=== PATIENT | male | born 1955 | race Caucasian/White ===

== ENCOUNTER → 2016-10-18 | Outpatient (CLI) | payer OTHER | LOC: RAD 08:13 | PROVIDERS: ATTEND Clinical Nurse Specialist Adult Health | DX: M54.5 Low back pain (principal) | CPT/HCPCS: 72148 ==

== ENCOUNTER → 2016-12-03 | Outpatient (CLI) | payer OTHER ==
--- NOTE | 2016-12-03 11:03 | RADIOLOGY REPORT (SQ) ---
EXAM DESCRIPTION: MRI LT LOWER JOINT WITHOUT COMPLETED DATE/TIME: 12/03/2016 10:03 am REASON FOR STUDY: PAIN IN LEFT KNEE M25.562 PAIN IN LEFT KNEE COMPARISON: None. TECHNIQUE: Leftknee images acquired and stored on PACS. Multiplanar images include fat sensitive se quences as T1, water sensitive sequences as FST2 or STIR, cartilage sensitive sequences as FSPD, and gradient echo sequences. LIMITATIONS: None. FINDINGS: JOINT AND BURSAE: Small suprapatellar knee joint effusion BONE CORTEX AND MARROW: No alteration of signal to suggest marrow replacement. No worrisome bone lesi ons. No occult fracture. ACL: Torn, best shown on sagittal image 10 through 14. PCL: Intact. MCL: Intact. No periligamentous edema or fluid. LCL: Intact. No periligamentous edema or fluid. MEDIAL MENISCUS: Diffuse complex tear mid body and posterior horn medial meniscus. No parameniscal c yst. LATERAL MENISCUS: Diffuse complex tear, midbody and posterior horn lateral meniscus, no parameniscal cyst. MEDIAL COMPARTMENT: Mild chondromalacia. No bone bruises or reactive marrow edema. No osteophytes. LATERAL COMPARTMENT: Moderate to high-grade chondromalacia. No bone bruises or reactive marrow edema. No osteophytes. PATELLA: No chondromalacia. No subchondral cysts. Medial and lateral retinacula intact. EXTENSOR MECHANISM: Intact. Quadriceps and patella tendons normal. SOFT TISSUES: Adjacent muscles and subcutaneous tissues normal. Normal flow void in popliteal artery and vein. OTHER: No other significant finding. 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 TECHNICAL DOCUMENTATION: JOB ID: [id number] [employer]- All Rights Reserved
== END ==
LOC: RAD 08:01
PROVIDERS: ATTEND Clinical Nurse Specialist Adult Health
DX: M25.562 Pain in left knee (principal); M22.42 Chondromalacia patellae, left knee

== ENCOUNTER 2017-03-11 12:35 | Emergency (ER) | payer OTHER ==
[2017-03-11] MEDS ORDERED: HYDROCODONE/ACETAMINOPHEN 5-325 MG TABLET PO ONE (13:35)
--- NOTE | 2017-03-11 13:37 | ER Document Report ---
ED General - General Chief Complaint: Fall Stated Complaint: FALL/BACK PAIN Time Seen by Provider: 03/11/17 13:26 Notes: 61-year-old male who had his left knee give out while he was walking today, states the left knee giving out his chronic problem and there is nothing new with his knee, denies any new knee pain. States he landed flat on his back and on his tailbone is now having pain in his back from his tailbone to his mid back also complains of sharp stabbing pains in his arms. Denies any new numbness or tingling, has chronic numbness to his feet with the exception of his great toes, there is no change in this numbness or tingling, also denies bowel or bladder dysfunction. Rates his pain as moderate. TRAVEL OUTSIDE OF THE [place] IN LAST 30 DAYS: No - Related Data Allergies/Adverse Reactions: morphine Allergy (Verified 03/11/17 12:41) Past Medical History - General Information source: Patient - Social History Smoking Status: Never Smoker Chew tobacco use (# tins/day): No Frequency of alcohol use: Rare Drug Abuse: None Lives with: Family Family History: Reviewed & Not Pertinent Patient has suicidal ideation: No Patient has homicidal ideation: No Renal/ Medical History: Denies: Hx Peritoneal Dialysis - Immunizations Hx Diphtheria, Pertussis, Tetanus Vaccination: Yes Review of Systems - Review of Systems Constitutional: No symptoms reported Musculoskeletal: See HPI Neurological/Psychological: See HPI -: Yes All other systems reviewed and negative Physical Exam - Vital signs Vitals: Temp Pulse Resp BP Pulse Ox 97.8 F 52 L 20 129/66 H 100 03/11/17 12:41 03/11/17 12:41 03/11/17 12:41 03/11/17 12:41 03/11/17 12:41 Interpretation: Bradycardic - Notes Notes: GENERAL: Alert, interacts well. Appears uncomfortable. HEAD: Normocephalic, atraumatic EYES: Pupils equal, round and reactive to light, extraocular movements intact. ENT: Oral mucosa moist, tongue midline. NECK: Full range of motion, supple, trachea midline. LUNGS: Clear to auscultation bilaterally, no wheezes, rales or rhonchi, no respiratory distress. HEART: Regular rate and rhythm, no murmurs, gallops, rubs. EXTREMITIES: Moves all 4 extremities spontaneously, no edema, radial and dorsalis pedis pulses 2/4 bilaterally. No cyanosis. NEUROLOGICAL: Alert and oriented x3, normal speech, biceps and patellar DTRs 2+ bilaterally. Decreased sensation to the feet bilaterally, sensation intact to the great toes bilaterally, great toe raising strength 5 out of 5 bilaterally, no saddle anesthesia, 5 out of 5 muscle strength with flexion extension of the hips and knees. SPINE: No step-offs or deformities, there is midline bony tenderness to palpation from approximately L3 through midline on the sacrum. PSYCH: Normal mood, normal affect. SKIN: Warm, Dry, normal turgor, no rashes or lesions noted. Course - Re-evaluation Re-evalutation: 03/11/17 16:29 Pain significantly relieved by single [place], feeling much better, able to ambulate without difficulty at this time. X-rays do not show any fractures with the exception of possible coccygeal dislocation. Discussed with patient that this is typically nonsurgical, treat with pain medications and an inflatable donut. Patient is agreeable to discharge with this plan. - Vital Signs Vital signs: Temp Pulse Resp BP Pulse Ox 97.8 F 52 L 20 129/66 H 100 03/11/17 12:41 03/11/17 12:41 03/11/17 12:41 03/11/17 12:41 03/11/17 12:41 Discharge - Discharge Clinical Impression: Closed dislocation of coccyx Qualifiers: Encounter type: initial encounter Qualified Code(s): S33.2XXA - Dislocation of sacroiliac and sacrococcygeal joint, initial encounter Condition: Stable Disposition: HOME, SELF-CARE Additional Instructions: Your tailbone is dislocated, typically this does not need surgery. Typically we treat this with pain medications and having use it on an inflatable donut. You do not need a prescription for an inflatable donut, you can pick this up at any drugstore. As we are giving you narcotics you will need to take a stool softener every day in order to prevent constipation. Please dissolve 1 scoop of MiraLAX in a glass of water once a day to treat constipation. You may increase to twice a day if needed to create soft bowel movements and you may decrease to every other day if you develop diarrhea. If your pain is not improving within the next 1-2 weeks please follow-up with your primary care physician for referral to a spine surgeon to discuss your tailbone injury further. Prescriptions: Hydrocodone/Acetaminophen [[place] 5-325 mg Tablet] 1 tab PO Q4HP PRN #20 tablet PRN Reason:
--- NOTE | 2017-03-11 14:37 | RADIOLOGY REPORT (SQ) ---
EXAM DESCRIPTION: L SPINE WHOLE COMPLETED DATE/TIME: 03/11/2017 2:13 pm REASON FOR STUDY: fall, pain, sharp in legs and arms COMPARISON: None. NUMBER OF VIEWS: Five views including obliques. TECHNIQUE: AP, lateral, oblique, and sacral radiographic images acquired of the lumbar spine. LIMITATIONS: None. FINDINGS: MINERALIZATION: Normal. SEGMENTATION: Normal. No transitional anatomy. ALIGNMENT: Normal. VERTEBRAE: Maintained height. No fracture or worrisome bone lesion. DISCS: Preserved height. Mild anterior osteophytic lipping is identified at multiple levels. POSTERIOR ELEMENTS: Pedicles and facets are intact. No pars defect or posterior arch defects. Degen erative changes are identified in the facet articulations at the L4 and L5 levels. HARDWARE: None in the spine. PARASPINAL SOFT TISSUES: Normal. PELVIS: Intact as visualized. No fractures or worrisome bone lesions. SI joints intact. OTHER: No other significant finding. IMPRESSION: Degenerative changes as noted above. TECHNICAL DOCUMENTATION: JOB ID: [id number] [employer]- All Rights Reserved
--- NOTE | 2017-03-11 14:39 | RADIOLOGY REPORT (SQ) ---
EXAM DESCRIPTION: SACRUM AND COCCYX COMPLETED DATE/TIME: 03/11/2017 2:13 pm REASON FOR STUDY: fall, pain, sharp in legs and arms COMPARISON: None. NUMBER OF VIEWS: Three views. TECHNIQUE: AP, lateral, and tilt views of the sacrum and coccyx. LIMITATIONS: None. FINDINGS: MINERALIZATION: Normal. BONES: In the lateral projection there is posterior displacement of the distal coccygeal segments in relation to the proximal segments which I cannot exclude as an acute dislocation. SOFT TISSUES: No soft tissue swelling. No foreign body. OTHER: No other significant finding. IMPRESSION: Possible dislocation of the coccyx as noted above. TECHNICAL DOCUMENTATION: JOB ID: [id number] [employer]- All Rights Reserved
--- NOTE | 2017-03-11 14:43 | RADIOLOGY REPORT (SQ) ---
EXAM DESCRIPTION: CERV SP 4 OR 5 VIEWS COMPLETED DATE/TIME: 03/11/2017 2:13 pm REASON FOR STUDY: fall, pain, sharp in legs and arms COMPARISON: None. NUMBER OF VIEWS: Five views. TECHNIQUE: AP, lateral, obliques and odontoid radiographic images acquired of the cervical spine. LIMITATIONS: Lower cervical spine is not well visualized in the lateral projection. FINDINGS: MINERALIZATION: Normal. ALIGNMENT: Anatomic. VERTEBRAE: Vertebral bodies of normal height. DISCS: I cannot exclude some decrease in the C6-C7 disc space height. FORAMINA: No osteophytes or foraminal narrowing. LATERAL AND POSTERIOR ELEMENTS: Facets, lateral masses and spinous processes without significant find ings. HARDWARE: None in the spine. SOFT TISSUES: No masses or calcifications. Lung apices clear. OTHER: No other significant finding. IMPRESSION: Limited visualization of the cervical spine in the lateral projection. I cannot exclude some decrease in the C6-C7 disc space height. No other significant vertebral compression or disc sp kevin reduction is seen. Other findings as noted above TECHNICAL DOCUMENTATION: JOB ID: [id number]- All Rights Reserved
--- NOTE | 2017-03-11 14:44 | RADIOLOGY REPORT (SQ) ---
EXAM DESCRIPTION: T SPINE AP/LAT COMPLETED DATE/TIME: 03/11/2017 2:13 pm REASON FOR STUDY: fall, pain, sharp in legs and arms COMPARISON: None. NUMBER OF VIEWS: Two views. TECHNIQUE: AP and lateral radiographic images acquired of the thoracic spine. LIMITATIONS: None. FINDINGS: MINERALIZATION: Normal. ALIGNMENT: A slightly exaggerated thoracic kyphosis is identified. VERTEBRAE: No fracture or bone lesion. Maintained height, normal segmentation. DISCS: No significant loss of height or significant narrowing. Osteophytic lipping is identified at multiple levels. HARDWARE: None in the spine. MEDIASTINUM AND SOFT TISSUES: Normal heart size and aortic contour. No soft tissue abnormality. VISUALIZED LUNG SMITH: Clear. OTHER: No other significant finding. IMPRESSION: Degenerative changes as noted above TECHNICAL DOCUMENTATION: JOB ID: [id number] [employer]- All Rights Reserved
[2017-03-11 17:07] VITALS: BP 108/66
== END 2017-03-11 17:04 | disposition home or self-care (01) ==
LOC: ER 12:35
DX: S33.2XXA Dislocation of sacroiliac and sacrococcygeal joint, initial encounter (principal); W19.XXXA Unspecified fall, initial encounter; Y93.01 Activity, walking, marching and hiking; M79.603 Pain in arm, unspecified; R20.0 Anesthesia of skin; R00.1 Bradycardia, unspecified
CPT/HCPCS: 72050; 72070; 72110; 72220; 99283

== ENCOUNTER → 2017-06-15 | Outpatient (CLI) | payer OTHER ==
[2017-06-15 09:59] LABS: ABSOLUTE EOSINOPHILS # (AUTO) 0.2 10^3/uL (0.0-0.6); ABSOLUTE LYMPHOCYTES (AUTO) 2.2 10^3/uL (0.5-4.7); ABSOLUTE MONOCYTES (AUTO) 0.6 10^3/uL (0.1-1.4); ABSOLUTE NEUT (AUTO) 5.4 10^3/uL (1.7-8.2); BASOPHILS % (AUTO) 0.5 % (0-2); EOSINOPHILS % (AUTO) 2.2 % (0-6); HEMATOCRIT 46.9 % (37.9-51.0); HEMOGLOBIN 15.6 g/dL (13.5-17.0); MEAN CORPUSCULAR HEMOGLOBIN 28.9 pg (27.0-33.4); MEAN CORPUSCULAR HGB CONC 33.3 g/dL (32.0-36.0); MEAN CORPUSCULAR VOLUME 87 fl (80-97); MONOCYTES % (AUTO) 7.3 % (3-13); PLATELET COUNT 244 10^3/uL (150-450); RED BLOOD COUNT 5.41 10^6/uL (4.35-5.55); RED CELL DISTRIBUTION WIDTH 13.5 % (11.5-14.0); TOTAL CELLS COUNTED % (AUTO) 100 %; WHITE BLOOD COUNT 8.5 10^3/uL (4.0-10.5)
[2017-06-15 10:10] LABS: APPEARANCE,URINE CLEAR; BILIRUBIN,URINE NEGATIVE (NEGATIVE); COLOR,URINE YELLOW; GLUCOSE, URINE NEGATIVE (NEGATIVE); KETONES,URINE NEGATIVE (NEGATIVE); LEUKOCYTE ESTERASE,URINE TRACE (NEGATIVE); NITRITE,URINE NEGATIVE (NEGATIVE); PROTEIN,URINE NEGATIVE (NEGATIVE); URINE SPECIFIC GRAVITY 1.017
[2017-06-15 10:21] LABS: ANION GAP 14 (5-19); BLOOD UREA NITROGEN 16 mg/dL (7-20); CALCIUM 10.2 mg/dL (8.4-10.2); CARBON DIOXIDE 29 mmol/L (22-30); CHLORIDE 100 mmol/L (98-107); GLUCOSE 121 mg/dL (75-110); POTASSIUM 4.9 mmol/L (3.6-5.0); SODIUM 142.6 mmol/L (137-145)
--- NOTE | 2017-06-15 10:32 | EKG REPORT ---
SEVERITY:- NORMAL ECG - SINUS RHYTHM : Confirmed by: Suly Qureshi 15-Jun-2017 10:31:23
--- NOTE | 2017-06-15 11:10 | RADIOLOGY REPORT (SQ) ---
EXAM DESCRIPTION: CHEST PA/LATERAL COMPLETED DATE/TIME: 06/15/2017 9:41 am REASON FOR STUDY: PRE OP COMPARISON: None. TECHNIQUE: Frontal and lateral radiographic views of the chest acquired. NUMBER OF VIEWS: Two view. LIMITATIONS: None. FINDINGS: LUNGS AND PLEURA: Minimal linear scar or subsegmental atelectasis in the left base. No ac [place] or suspicious opacities. MEDIASTINUM AND HILAR STRUCTURES: No masses or contour abnormalities. HEART AND VASCULAR STRUCTURES: Heart normal size. No evidence for failure. BONES: No acute findings. HARDWARE: None in the chest. OTHER: No other significant finding. IMPRESSION: NO SIGNIFICANT RADIOGRAPHIC FINDING IN THE CHEST. TECHNICAL DOCUMENTATION: JOB ID: [id number] [employer]- All Rights Reserved
== END ==
LOC: OD 09:05
PROVIDERS: ATTEND Orthopaedic Surgery
DX: Z01.818 Encounter for other preprocedural examination (principal)
CPT/HCPCS: 36415; 71046; 80048; 81001; 83036; 85025; 93005; 93010

== ENCOUNTER 2017-07-04 05:28 | Inpatient (IN) | payer OTHER, MEDICARE ==
[~2017-07-04 05:28] MED LIST: BUPIVACAINE INJ/PF LIPOSOME/PF 266 MG/20 ML SDV IJ PRN; BUPIVACAINE INJ/PF LIPOSOME/PF 266 MG/20 ML SDV ONE; CEFAZOLIN INJ 1 GM VIAL INJ PRN; IBUPROFEN 800 MG/NS 250 ML IV PRN; LACTATED RINGERS 1000 ML IV PRN; LANSOPRAZOLE 15 MG TAB.RAP.DR PO PRN; LIDOCAINE 0.5% INJ-PF (5 MG/ML) 50 ML SDV SUBCUT PRN; OXYCODONE HCL SR 10 MG TABLET PO PRN; THROMBIN (BOVINE) 5000 UNIT EPITAXIS KIT ONE; THROMBIN (BOVINE) TOPICAL 20000 UNIT VIAL ONE; VANCOMYCIN HCL 1,000 MG in DEXTROSE 5%-WATER 250 ML IV PRN
[2017-07-04] MEDS ORDERED: MIDAZOLAM 2 MG/2 ML INJ ONE (07:02)
[2017-07-04] MEDS ORDERED: ONDANSETRON HCL INJ/PF 4 MG/2 ML SDV ONE (07:02)
[2017-07-04] MEDS ORDERED: FENTANYL CITRATE INJ/PF 100 MCG/2 ML AMPUL ONE (07:02)
[2017-07-04] MEDS ORDERED: HYDROMORPHONE HCL INJ/PF 2 MG/ML AMPULE ONE (07:03)
[2017-07-04] MEDS ORDERED: PROPOFOL INJ 200 MG/20 ML VIAL IV ONE (07:03)
[2017-07-04] MEDS ORDERED: TRANEXAMIC ACID INJ/PF 1,000 MG/10 ML SDV IV ONE (07:03)
[2017-07-04] MEDS ORDERED: PROMETHAZINE HCL INJ 25 MG/1 ML VIAL IV PRN ×2 (07:55)
[2017-07-04] MEDS ORDERED: OXYCODONE-ACETAMINOPHEN 5-325 MG TABLET PO PRN ×2 (07:55)
[2017-07-04] MEDS ORDERED: FENTANYL CITRATE INJ/PF 100 MCG/2 ML AMPUL IV PRN ×3 (07:55)
[2017-07-04] MEDS ORDERED: DIPHENHYDRAMINE HCL 50 MG/ML VIAL IV PRN ×2 (07:55→08:46)
[2017-07-04] MEDS ORDERED: MEPERIDINE HCL/PF INJ 25 MG/1 ML DISP.SYRIN IV PRN (07:55)
--- NOTE | 2017-07-04 08:34 | Operative Report ---
Operative Report DATE OF SURGERY: 07/04/17 PREOPERATIVE DIAGNOSIS: Left knee arthritis OPERATION: Left knee arthroplasty SURGEON: TARAH MARIEE 1ST SENIOR REPORT DEVELOPER: CARISSA HARTMANN ANESTHESIA: Spinal TISSUE REMOVED OR ALTERED: Bone to pathology ESTIMATED BLOOD LOSS: 100 PROCEDURE: Implants used: Femur: Earl triathlon size 7 CR femur Tibia: 6 tibia Tibial liner: 9 mm CS insert Patella: 40 mm oval patella Procedure with the patient supine on the operating table the left the limb is prepped and draped in a sterile fashion. The limb was elevated for exsanguination and the tourniquet inflated to 280 torr. A standard midline median parapatellar approach the knee is taken. Access is gained to the femoral canal through the intercondylar notch. Intramedullary alignment instrumentation used to resect 10 mm of distal femur in 5 of valgus. Sizing guide indicated a size 7 femur. Appropriate cutting jig is then used to fashion anterior posterior and chamfer cuts. A trial reduction femurs performed and this is judged to be adequate. Attention was next turned to the tibia. Using an extra medullary alignment system 11 millimeters was resected off the lateral tibial plateau. This is sized to a size 6 tibia. A trial reduction was now performed with a 7 femur and a 6 tibia using a 9 millimeters spacer. It is full extension and central patellofemoral tracking. The articular surface the patella was next resected using an oscillating saw. All trial implants were removed. Polymethylmethacrylate is mixed and used to cement the above implants in place. On adequate curing the cement excess cement was removed the tourniquet was deflated hemostasis obtained the wound is then closed in layers using interrupted Vicryl followed by ronald. A sterile compressive dressing was applied and the patient returned to recovery room in satisfactory condition.
[2017-07-04] MEDS ORDERED: ONDANSETRON 4 MG TAB.RAPDIS PO PRN ×2 (08:46→09:30)
[2017-07-04] MEDS ORDERED: ACETAMINOPHEN 325 MG TABLET PO PRN (08:46)
[2017-07-04] MEDS ORDERED: ONDANSETRON HCL INJ/PF 4 MG/2 ML SDV IV PRN ×2 (08:46→09:30)
[2017-07-04] MEDS ORDERED: ZOLPIDEM TARTRATE 5 MG TABLET PO PRN ×2 (08:46→10:00)
[2017-07-04] MEDS ORDERED: OXYCODONE HCL IR 5 MG TABLET PO PRN (08:46)
[2017-07-04] MEDS ORDERED: MAG HYDROX/AL HYDROX/SIMETH SUSP 30 ML UDCUP PO PRN (08:46)
[2017-07-04] MEDS ORDERED: HYDROMORPHONE HCL INJ/PF 2 MG/ML AMPULE IV PRN (08:50)
--- NOTE | 2017-07-04 09:37 | RADIOLOGY REPORT (SQ) ---
EXAM DESCRIPTION: KNEE LEFT 2 VIEWS COMPLETED DATE/TIME: 07/04/2017 9:19 am REASON FOR STUDY: Post OP -Long Cassette in PACU M17.12 UNILATERAL PRIMARY OSTEOARTHRITIS, LEFT KNE E COMPARISON: None. NUMBER OF VIEWS: Two view(s). TECHNIQUE: Digital radiographic images of the left knee post-procedure. LIMITATIONS: None. FINDINGS: BONES: No worrisome or unexpected findings post-procedure. DEVICE: Total knee arthroplasty. SOFT TISSUES: No worrisome findings. Expected postoperative soft tissue changes. IMPRESSION: SATISFACTORY POSTOPERATIVE left KNEE. TECHNICAL DOCUMENTATION: JOB ID: [id number] [employer]- All Rights Reserved
[2017-07-04] MEDS ORDERED: VENLAFAXINE HCL 75 MG TABLET PO SCH (10:00)
[2017-07-04] MEDS ORDERED: (PENDING PHARMACY ID) (Trazodone Hcl [Desyrel] 150 MG) PO SCH (10:00)
[2017-07-04] MEDS ORDERED: (PENDING PHARMACY ID) (Metformin Hcl [Metformin Hcl] 1,000 MG) PO SCH (10:00)
[2017-07-04] MEDS: PREGABALIN 75 MG CAPSULE PO SCH ×2 (10:50→21:27)
[2017-07-04] MEDS ORDERED: INFLUENZA ADLT QUAD (36MOS+) 2017-18 VAC 0.5 ML SYR IM PRN (10:57)
[2017-07-04] MEDS ORDERED: ACETAMINOPHEN 100 ML IV ONE (15:00)
[2017-07-04] MEDS: GABAPENTIN 300 MG CAPSULE PO SCH ×2 (15:09→21:27)
[2017-07-04] MEDS: OXYCODONE HCL SR 10 MG TABLET PO SCH (17:43)
[2017-07-04] MEDS: METFORMIN HCL 500 MG TABLET PO SCH (17:43)
[2017-07-04] MEDS ORDERED: VANCOMYCIN HCL 1,000 MG in DEXTROSE 5%-WATER 250 ML IV ONE (21:00)
[2017-07-04] MEDS ORDERED: SIMVASTATIN 40 MG TABLET PO SCH (22:00)
[2017-07-04] MEDS ORDERED: VENLAFAXINE HCL 75 MG CAP.SR.24H PO SCH (22:00)
[2017-07-04] MEDS ORDERED: TRAZODONE HCL 50 MG TABLET PO SCH (22:00)
[2017-07-05] MEDS: GABAPENTIN 300 MG CAPSULE PO SCH (05:37)
[2017-07-05] MEDS: OXYCODONE HCL SR 10 MG TABLET PO SCH (05:37)
[2017-07-05] MEDS ORDERED: LANSOPRAZOLE 30 MG TAB.RAP.DR PO SCH (06:00)
[2017-07-05 06:03] LABS: HEMATOCRIT 38.6 % (37.9-51.0); HEMOGLOBIN 12.7 g/dL (13.5-17.0); MEAN CORPUSCULAR HEMOGLOBIN 28.9 pg (27.0-33.4); MEAN CORPUSCULAR VOLUME 88 fl (80-97); PLATELET COUNT 186 10^3/uL (150-450); RED CELL DISTRIBUTION WIDTH 13.5 % (11.5-14.0); WHITE BLOOD COUNT 12.1 10^3/uL (4.0-10.5)
[2017-07-05 06:19] LABS: ANION GAP 9 (5-19); BLOOD UREA NITROGEN 17 mg/dL (7-20); CALCIUM 9.1 mg/dL (8.4-10.2); CARBON DIOXIDE 28 mmol/L (22-30); CHLORIDE 99 mmol/L (98-107); GLUCOSE 222 mg/dL (75-110); POTASSIUM 4.7 mmol/L (3.6-5.0); SODIUM 136.3 mmol/L (137-145)
--- NOTE | 2017-07-05 06:41 | PDOC DISCHARGE SUMMARY ---
General - Admit/Disc Date/PCP Admission Date/Primary Care Provider: 07/04/17 05:28 Discharge Date: 07/05/17 - Discharge Diagnosis (1) Arthritis of left knee Is this a current diagnosis for this admission?: Yes Summary: Patient is a 61-year-old white male with progressive left knee pain and functional disability secondary osteoarthritis. Patient is admitted for elective left knee arthroplasty. - Additional Information Resuscitation Status: Full Code Discharge Diet: As Tolerated, Regular Discharge Activity: Balance Activity w/Rest, Bedrest, No tub bath Home Medications: Gabapentin [Neurontin 300 mg Capsule] 300 mg PO Q8 06/14/17 Lisinopril 5 mg PO DAILY 06/14/17 Metformin HCl 1,000 mg PO BIDBS 06/14/17 Simvastatin 40 mg PO QHS 06/14/17 Trazodone HCl [Desyrel] 150 mg PO QHS 06/14/17 Insulin Glargine,Hum.rec.anlog [Lantus Insulin 100 Unit/1 ml 10 ml] 32 unit SUBCUT Q12 07/04/17 Venlafaxine HCl ER [Effexor Xr 75 mg Cap.sr] 225 mg PO QHS 07/04/17 Oxycodone HCl [Oxy-Ir 5 mg Tablet] 5 mg PO Q6HP PRN tablet 07/05/17 History of Present Illness History of Present Illness: RASHIDA ARIZA is a 61 year old male Hospital Course Hospital Course: Patient is admitted through the operating where he undergoes uncomplicated left knee arthroplasty. He is returned to floor in satisfactory condition. He makes excellent progress with physical therapy and getting 125 feet. Hematocrit remains stable. Patient subsequently for discharge home. Physical Exam Vital Signs: Temp Pulse Resp BP Pulse Ox 36.4 C 67 19 111/63 96 07/04/17 23:41 07/04/17 23:41 07/04/17 23:41 07/04/17 23:41 07/05/17 04:22 Intake & Output 07/03/17 07/04/17 07/05/17 06:59 06:59 06:59 Intake Total 0 4004 Output Total 3150 Balance 0 854 Weight 138.5 kg General appearance: PRESENT: no acute distress Head exam: PRESENT: normocephalic Respiratory exam: PRESENT: unlabored Cardiovascular exam: PRESENT: RRR Pulses: PRESENT: +1 pedal pulses bilateral Vascular exam: PRESENT: normal capillary refill GI/Abdominal exam: PRESENT: soft Rectal exam: PRESENT: deferred Extremities exam: PRESENT: other - Left lower extremity dressing clean dry and intact minimal pedal edema. Distal neurovascular examination is intact. Neurological exam: PRESENT: alert, awake, oriented to person, oriented to place , oriented to time, oriented to situation. ABSENT: motor sensory deficit Psychiatric exam: PRESENT: appropriate affect, normal mood. ABSENT: homicidal ideation, suicidal ideation Skin exam: PRESENT: dry, intact, warm. ABSENT: cyanosis, rash Results Laboratory Results: 07/05/17 05:52 07/05/17 05:52 07/05/17 07/05/17 05:52 05:52 WBC 12.1 H RBC 4.40 Hgb 12.7 L Hct 38.6 MCV 88 MCH 28.9 MCHC 33.0 RDW 13.5 Plt Count 186 Sodium 136.3 L Potassium 4.7 Chloride 99 Carbon Dioxide 28 Anion Gap 9 BUN 17 Creatinine 0.84 Est GFR ( Amer) > 60 Est GFR (Non-Af Amer) > 60 Glucose 222 H Calcium 9.1 Impressions: Knee X-Ray 07/04/17 08:48 IMPRESSION: SATISFACTORY POSTOPERATIVE left KNEE. Status: Imported from PACS Plan Discharge Plan: [facility] to be discharged home with home health nursing, home health physical therapy, wheeled walker, bedside commode. Follow-up with Dr. Rinaldi and [facility] for surgery in 2 weeks for staple removal.
[2017-07-05] MEDS: METFORMIN HCL 500 MG TABLET PO SCH (08:28)
[2017-07-05] MEDS ORDERED: LISINOPRIL 5 MG TABLET PO SCH (10:00)
[2017-07-05] MEDS ORDERED: LISINOPRIL 10 MG TABLET PO SCH (10:00)
[2017-07-05 10:34] VITALS: BP 118/85
[2017-07-05] MEDS ORDERED: TRAZODONE HCL 50 MG TABLET PO SCH (11:00)
== END 2017-07-05 11:29 | disposition home health service (06) | DRG 470 ==
LOC: INOR 05:28 → 4S 10:06 → EDSTATUS 13:45
PROVIDERS: ADMIT Orthopaedic Surgery; ATTEND Orthopaedic Surgery
PROC: 5A09357 Assistance with Respiratory Ventilation, Less than 24 Consecutive Hours, Continuous Positive Airway Pressure (ICD-10-PCS; 2017-07-04)
PROC: 0SRD0J9 Replacement of Left Knee Joint with Synthetic Substitute, Cemented, Open Approach (ICD-10-PCS; principal; 2017-07-05)
PROC: 3E0234Z Introduction of Serum, Toxoid and Vaccine into Muscle, Percutaneous Approach (ICD-10-PCS; 2017-07-05)
DX: M17.12 Unilateral primary osteoarthritis, left knee (principal); E11.9 Type 2 diabetes mellitus without complications; I10 Essential (primary) hypertension; Z23 Encounter for immunization; Z88.6 Allergy status to analgesic agent; Z79.899 Other long term (current) drug therapy
CPT/HCPCS: 01402; 36415; 80048; 82962; 85027; 88305; 88311; 90686; 94660; C9290; J0131; J0690; J1170; J1741; J2250; J2405; J2704; J3010; J3370; J3490; J7050; J7060